=== PATIENT | female | born 1970 | race Hispanic/Latino ===

== ENCOUNTER 2020-06-19 14:22 | Outpatient (CLI) | payer OTHER | END 2020-06-19 21:34 | disposition home or self-care (01) | LOC: LAB 14:22 | PROVIDERS: ATTEND Podiatrist | DX: M10.071 Idiopathic gout, right ankle and foot (principal) | CPT/HCPCS: 36415; 84550; 86140 ==

== ENCOUNTER 2021-08-15 10:24 | Outpatient (CLI) | payer OTHER | END 2021-08-15 20:27 | disposition home or self-care (01) | LOC: MAMMO 10:24 | PROVIDERS: ATTEND Nurse Practitioner Family | DX: Z12.31 Encounter for screening mammogram for malignant neoplasm of breast (principal) ==